=== PATIENT | female | born 1980 | race Caucasian/White ===

== ENCOUNTER 2022-09-17 13:22 | Emergency (ER) | payer OTHER, SELFPAY ==
[2022-09-17 13:36] VITALS: BP 122/81; PULSE 94; RESP 16; TEMP 37.5; O2SAT 99
--- NOTE | 2022-09-17 13:37 | ED.GENADULT ---
HPI - General Adult General Chief complaint: Upper Respiratory Infection Stated complaint: sore throat Source: patient Mode of arrival: ambulatory Limitations: no limitations History of Present Illness HPI narrative: Patient presents for evaluation of sore throat for the last 3 days. Symptoms were initially mild but have progressed in severity. fever, chills, nausea, vomiting. She has some postnasal drainage. She is not taking any medications for her symptoms. She formal diagnosis of COVID in the past. She does not smoke. She states several coworkers have been sick as of late. No additional complaints or concerns. Related Data Home Medications Medication Instructions Recorded Confirmed ergocalciferol (vitamin D2) 1,250 1 unit PO WEEKLY 09/17/22 09/17/22 mcg (50,000 unit) capsule fluoxetine 20 mg capsule 20 mg PO DAILY 09/17/22 09/17/22 Allergies Allergy/AdvReac Type Severity Reaction Status Date / Time acetaminophen [From Percocet] Allergy Nausea and Verified 09/17/22 13:32 Vomiting oxycodone [From Percocet] Allergy Nausea and Verified 09/17/22 13:32 Vomiting Review of Systems Review of Systems: CONSTITUTIONAL: Denies fever, chills, or sweats. EYES: Denies visual changes, redness, or discharge. ENT: Reports postnasal drainage and sore throat. Denies otalgia. CARDIOVASCULAR: Denies chest pain, palpitations, or edema. RESPIRATORY: Denies cough or dyspnea. GASTROINTESTINAL: Denies abdominal pain, nausea, vomiting, or diarrhea. GENITOURINARY: Denies dysuria or hematuria. SKIN: Denies rash or itching. MUSCULOSKELETAL: Denies back pain, joint pain, or myalgia. NEUROLOGIC: Denies headache, numbness, dizziness, or weakness. PSYCHIATRIC: Denies anxiety or depression. [facility] Surgical History Surgical History (Updated 09/17/22 @ 13:58 by ROULA Cruz, CAESAR) No pertinent past surgical history Family History Family History Father Diabetes mellitus Mother Family history of malignant neoplasm of kidney Social History Social History Substance use: never Additional occupation/education comments: RN Gender identity (if verbalized by the patient): Female Sexual Orientation (if Verbalized by the Patient): Straight or Heterosexual Exam Narrative: GENERAL: Well-appearing, well-nourished, and in no acute distress. HEAD: Normocephalic, atraumatic. EYES: PERRLA and EOMI. ENT: Nares clear, no rhinorrhea or epistaxis. Mucous membranes moist. There is posterior pharyngeal erythema and white exudate. Uvula is midline. Bilateral TMs pearly crawford nonbulging NECK: Supple. No adenopathy or masses. No carotid bruits or JVD CHEST: Clear to auscultation. No respiratory distress. No wheezes rales or rhonchi HEART: Regular rate and rhythm. No murmur heard. Normal peripheral pulses. ABDOMEN: Soft, nontender, nondistended, normal active bowel sounds. EXTREMITIES: Normal range of motion. No edema. SKIN: Warm, dry, no rash. NEURO: No focal deficits. Alert and oriented x3. PSYCH: Normal mood and affect. Course Course Emergency Course: This is a 41-year-old female presented for evaluation of sore throat. Rapid strep here positive. Will treat with amoxicillin. Increase hydration. [id number] agents for symptom management. Follow up outpatient. Go to the ER for difficulty breathing or swelling. Patient in agreement with plan of care. Level of Care: Express Care Visit Vital Signs Vital signs: Vital Signs Temperature 37.5 C 09/17/22 13:36 Pulse Rate 94 09/17/22 13:36 Respiratory Rate 09/17/22 13:36 Blood Pressure 122/81 09/17/22 13:36 Pulse Oximetry 99 09/17/22 13:36 Temperature 37.5 C 09/17/22 13:36 Pulse Rate 94 09/17/22 13:36 Respiratory Rate 16 09/17/22 13:36 Blood Pressure 122/81 09/17/22 13:36 Pulse Oximetry 99 09/02
== END 2022-09-17 13:44 | disposition home or self-care (01) ==
PROVIDERS: Emergency Provider Nurse Practitioner; PCP Family Medicine
DX: J02.0 Streptococcal pharyngitis (principal)
CPT/HCPCS: 87880; 99203; G0463

== ENCOUNTER 2023-07-09 12:38 | Outpatient (CLI) | payer OTHER, SELFPAY ==
--- NOTE | ~2023-07-09 | US_ITS ---
EXAMINATION: US thyroid DATE: 07/09/2023 13:10 INDICATION: Abnormal thyroid function tests TECHNIQUE: Multiple ultrasound images of the thyroid were obtained. COMPARISON: None. FINDINGS: The right thyroid lobe measures 4.4 x 1.6 x 1.6 cm. The left thyroid lobe measures 3.5 x 1.3 x 1.7 c m. There is heterogeneous echogenicity throughout the thyroid gland. 7 mm solid, hypoechoic, wider t bowman tall, smoothly marginated nodule in the left lobe, without internal calcification (TR4). Normal v ascular flow is present. IMPRESSION: 7 mm TR 4 lesion in the inferior left thyroid lobe which requires no FNA or follow-up. Heterogeneous thyroid as can be seen with Graves' disease and Kiet's thyroiditis. Reviewed, dictated and finalized at location K. GAME MACHINE INSPECTOR IMPRESSION: 7 mm TR 4 lesion in the inferior left thyroid lobe which requires no FNA or fol low-up. Heterogeneous thyroid as can be seen with Graves' disease and Kiet's thyro iditis.
== END 2023-07-09 12:39 | disposition home or self-care (01) ==
PROVIDERS: PCP Family Medicine
DX: R94.6 Abnormal results of thyroid function studies (principal)
CPT/HCPCS: 76536

== ENCOUNTER 2023-10-15 16:07 | Outpatient (CLI) | payer OTHER, SELFPAY ==
--- NOTE | ~2023-10-15 | XR_ITS ---
XR foot LT min 3V DATE: 10/15/2023 16:34 INDICATION: Recent injury, stepping off of a bale of hay incorrectly. Plantar foot pain at sesamoid a nd first metatarsal area TECHNIQUE: Weightbearing AP, oblique and lateral views. Sesamoid view. COMPARISON: None FINDINGS: No sesamoid fracture or dislocation is noted. No fracture, dislocation, periosteal reaction or bone destruction is detected. IMPRESSION: No significant abnormality Reviewed, dictated and finalized at location L. CTOR OF MARKET INTELLIGENCE IMPRESSION: No significant abnormality
== END 2023-10-15 16:08 | disposition home or self-care (01) ==
LOC: ANHIMG 16:09
PROVIDERS: PCP Family Medicine; Visit Provider Podiatrist Foot & Ankle Surgery
DX: M79.672 Pain in left foot (principal)
CPT/HCPCS: 73630

== ENCOUNTER 2023-12-11 08:34 | Outpatient (CLI) | payer OTHER, SELFPAY ==
[2023-12-16 13:51] VITALS: BMI 25.5
--- NOTE | 2023-12-16 13:51 | WPDHOMESLEEP ---
Sleep Study - Home Unattended Date of Study: 12/11/23 Ordering Provider: BRISA Castro Interpreting Provider: Hannah Maciel, DO Home Sleep Study Type: Watch PAT Height: 1.8 m Weight: 83.007 kg Body Mass Index: 25.5 Neck Circumference (inches): 14.25 [place]: 8 Reason for Sleep Study Unrefreshing sleep. Difficulty staying asleep Sleep History The patient is a 43-year-old female with Kiet's thyroiditis, PMDD, hair loss and history of tobacco use that had a sleep study ordered for evaluation sleep apnea. The patient denies awakening from sleep short of breath. She rarely awakens at night with heartburn, belching or cough. She frequently snores and is frequently loud enough that others complain. She occasionally has trouble sleeping when she has a cold. She denies waking up gasping for air throughout the night. She denies having breathing problems at night observed by herself or others. She rarely sweats excessively at night. She denies having heart palpitations or irregular heartbeats during the night. She rarely falls asleep during the day but never while driving. She denies sleep paralysis and cataplexy. She denies having trouble at school or work due to sleepiness. She occasionally experiences vivid dreamlike scenes upon awakening or falling asleep. She denies feeling afraid of going to sleep. She denies having nightmares. She occasionally remembers her dreams. She occasionally has thoughts racing through her mind. She denies feeling sad or depressed. She occasionally has anxiety. She constantly has muscular tension. She frequently notices parts of her body jerk. She frequently kicks during the night. She constantly has crawling and aching feelings in her legs and constantly has leg pain during the night. He constantly grinds her teeth during sleep and constantly awakens with morning jaw pain. She is constantly bothered by pain during the day and constantly awakened by pain during the night. She constantly wakes up feeling stiff in morning. She constantly wakes up with sore or achy muscles. She constantly wakes up with pain in the neck, spine and other joints. She goes to bed between 9-9:30 p.m. on weekdays and at 10:00 p.m. on the weekends. It takes her less than 30 minutes to fall asleep. She wakes up 3-5 times throughout the night for unknown reasons and it can take her up to an hour to fall back asleep. She wakes up at 5:45 a.m. on weekdays and 7:00 a.m. on the weekends. She typically gets 7-8 hours of sleep per night. She will stay in bed for 15-20 minutes after waking up in the morning. She currently lives with her and 2 children. She denies consuming any caffeinated beverages within 2 hours of bedtime. She denies engaging in physical exercise before bedtime. She will watch television before falling asleep. She denies taking naps in the afternoon or the evening. She consumes 1 cup of coffee per day. She has 1 alcoholic beverage per week. She is a former smoker. She denies recreational drug use. [facility] Past Medical History Medical History Kiet's thyroiditis Snoring Surgical History Surgical History No pertinent past surgical history Family History Family History Father Diabetes mellitus Mother Family history of malignant neoplasm of kidney Grandparent Carcinoma of colon Social History Social History Smoking status: Never smoker Alcohol intake: current Alcohol use details: wine Substance use: never Do You Feel Safe in your Home?: Yes Lack of Transportation: No Lack of Food: Never True Current Housing: I Have Housing Concerned About Future Housing: No Difficulty Paying Gas/Electric Bills: No Difficulty Paying for
== END 2023-12-16 10:00 | disposition home or self-care (01) ==
LOC: ANHCSM 08:35
PROVIDERS: PCP Family Medicine; Visit Provider Physician Assistant
DX: G47.10 Hypersomnia, unspecified (principal); R06.83 Snoring
CPT/HCPCS: 95800

== ENCOUNTER 2023-12-11 15:18 | Outpatient (CLI) | payer OTHER, SELFPAY ==
[2023-12-11 16:34] LABS: Vitamin D 25 Hydroxy 81.8 ng/mL
[2023-12-11 18:10] LABS: Iron 103 ug/dL (37-170)
[2023-12-11 18:20] LABS: Percent Iron Saturation 34 % (20-50)
== END 2023-12-11 15:19 | disposition home or self-care (01) ==
LOC: ANHLAB 15:19
PROVIDERS: PCP Family Medicine; Referring Provider Physician Assistant; Visit Provider Internal Medicine
DX: E06.3 Autoimmune thyroiditis (principal); D64.9 Anemia, unspecified
CPT/HCPCS: 36415; 82306; 82607; 82728; 83540; 83550

== ENCOUNTER 2024-01-11 13:52 | Emergency (ER) | payer OTHER, SELFPAY ==
--- NOTE | 2024-01-11 14:02 | ED.URI ---
HPI - URI/Sore Throat General Chief Complaint: Upper Respiratory Infection Stated Complaint: SORE THROAT/SWOLLEN GLANDS History of Present Illness HPI Narrative: 43-year-old female presented for complaint of sore throat, swollen glands, and green nasal drainage. onset 3 days. States she felt worse yesterday with generalized malaise and saw spots on tonsils. Endorses daughter with similar symptoms. Denies shortness of breath, wheezing, nausea, vomiting, diarrhea, fevers or chills. Related Data Home Medications Medication Instructions Recorded Confirmed ergocalciferol (vitamin D2) 1,250 1 unit PO WEEKLY 09/17/22 01/11/24 mcg (50,000 unit) capsule fluoxetine 20 mg capsule 20 mg PO DAILY 09/17/22 01/11/24 Allergies Allergy/AdvReac Type Severity Reaction Status Date / Time acetaminophen [From Percocet] Allergy Nausea and Verified 01/11/24 14:18 Vomiting oxycodone [From Percocet] Allergy Nausea and Verified 01/11/24 14:18 Vomiting Review of Systems Review of Systems: CONSTITUTIONAL: Denies body aches, fever, chills, or sweats. EYES: Denies visual changes, redness, or discharge. ENT: reports rhinorrhea, sore throat denies otalgia. CARDIOVASCULAR: Denies chest pain, palpitations, or edema. RESPIRATORY: Denies dyspnea. GASTROINTESTINAL: Denies abdominal pain, nausea, vomiting, or diarrhea. SKIN: Denies rash, itching, or wounds. MUSCULOSKELETAL: Denies back pain, joint pain, or myalgia. NEUROLOGIC: Denies headache PMFSH Past Medical History Medical History Kiet's thyroiditis Snoring Surgical History Surgical History No pertinent past surgical history Family History Family History Father Diabetes mellitus Mother Family history of malignant neoplasm of kidney Grandparent Carcinoma of colon Social History Social History Smoking status: Never smoker Alcohol intake: current Alcohol use details: wine Substance use: never Do You Feel Safe in your Home?: Yes Lack of Transportation: No Lack of Food: Never True Current Housing: I Have Housing Concerned About Future Housing: No Difficulty Paying Gas/Electric Bills: No Difficulty Paying for Meds: No Currently Unemployed: No Education: Associate Degree Difficulty w/ Childcare or Family Care: No Living arrangements: with family Additional occupation/education comments: RN Gender identity (if verbalized by the patient): Female Sexual Orientation (if Verbalized by the Patient): Straight or Heterosexual Exam Narrative: GENERAL: well-appearing, no acute distress. EYES: conjunctivae clear ENT: Mucous membranes moist. TMs pearly crawford with normal light reflex bilaterally; no tragal tenderness. Oropharynx erythematous without lesions. Tonsils enlarged 1+ and without exudate. No drooling, no hoarseness, no trismus, uvula midline. No tripod positioning, hot potato voice, or soft palate swelling. NECK: Supple. No lymphadenopathy CHEST: Clear to auscultation, breath sounds equal. No respiratory distress, speaks in full sentences. HEART: Regular rate and rhythm. No murmur heard. SKIN: Warm, dry, no rash. NEURO: Alert and oriented x3. Course Course Emergency Course: Patient is aware of diagnosis, understands and agrees to treatment plan. Anticipatory guidance given. Patient agrees to follow-up as directed and is aware of reasons to seek care at the emergency department. Portions of this record may have been created with voice recognition software Level of Care: Express Care Visit Vital Signs Vital signs: Vital Signs Temperature 97.7 F 01/11/24 14:03 Pulse Rate 81 01/11/24 14:03 Respiratory Rate 18 01/11/24 14:03 Blood Pressure 109/79 01/11/24 14:03 Pulse Oximet
[2024-01-11 14:03] VITALS: BP 109/79; PULSE 81; RESP 18; TEMP 36.5; O2SAT 100
== END 2024-01-11 14:27 | disposition home or self-care (01) ==
PROVIDERS: Emergency Provider Nurse Practitioner Family
DX: J02.0 Streptococcal pharyngitis (principal); E06.3 Autoimmune thyroiditis
CPT/HCPCS: 99213; G0463

== ENCOUNTER 2024-03-20 18:17 | Emergency (ER) | payer OTHER, SELFPAY ==
[2024-03-20 18:26] VITALS: BP 115/84; PULSE 77; RESP 16; TEMP 36.7; O2SAT 98
--- NOTE | 2024-03-20 18:44 | ED.NAVMDI ---
HPI - Nausea/Vomiting/Diarrhea General Chief complaint: Nausea/Vomiting/Diarrhea Stated complaint: NAUSEA/VOMITING/TIRED/CHILLS/HOT/FAN/BACK PAIN Time Seen by Provider: 03/20/24 18:34 Source: patient and RN notes reviewed Mode of arrival: ambulatory Limitations: no limitations History of Present Illness HPI Narrative: Patient presents today complaining of 3 day history of headache, back pain and sensitivity, fatigue, nausea, vomiting, decreased appetite. She has been trying Tylenol and Sudafed without much relief and currently rates her pain 4/10. Related Data Home Medications Medication Instructions Recorded Confirmed ergocalciferol (vitamin D2) 1,250 1 unit PO WEEKLY 09/17/22 03/20/24 mcg (50,000 unit) capsule fluoxetine 20 mg capsule 20 mg PO DAILY 09/17/22 03/20/24 Ozempic 03/20/24 Allergies Allergy/AdvReac Type Severity Reaction Status Date / Time acetaminophen [From Percocet] Allergy Nausea and Verified 03/20/24 18:37 Vomiting oxycodone [From Percocet] Allergy Nausea and Verified 03/20/24 18:37 Vomiting Review of Systems Review of Systems: CONSTITUTIONAL: Denies fever, chills, or sweats.+ body aches, fatigue, weakness EYES: Denies visual changes, redness, or discharge. ENT: Denies rhinorrhea, congestion, sore throat, or otalgia. CARDIOVASCULAR: Denies chest pain, palpitations, or edema. RESPIRATORY: Denies cough or dyspnea. GASTROINTESTINAL: Denies abdominal pain.+ nausea, vomiting, decreased appetite GENITOURINARY: Denies dysuria or hematuria. SKIN: Denies rash, itching, or wounds. MUSCULOSKELETAL: Denies back pain, joint pain, or myalgia. NEUROLOGIC: Denies numbness, tingling, or weakness.+ headache PSYCH: Denies depression or anxiety. [facility] Past Medical History Medical History Kiet's thyroiditis Snoring Surgical History Surgical History No pertinent past surgical history Family History Family History Father Diabetes mellitus Mother Family history of malignant neoplasm of kidney Grandparent Carcinoma of colon Social History Social History Smoking status: Never smoker Alcohol intake: current Alcohol use details: wine Substance use: never Do You Feel Safe in your Home?: Yes Lack of Transportation: No Lack of Food: Never True Current Housing: I Have Housing Concerned About Future Housing: No Difficulty Paying Gas/Electric Bills: No Difficulty Paying for Meds: No Currently Unemployed: No Education: Associate Degree Difficulty w/ Childcare or Family Care: No Living arrangements: with family Additional occupation/education comments: RN Gender identity (if verbalized by the patient): Female Sexual Orientation (if Verbalized by the Patient): Straight or Heterosexual Comments At time of signature, I have reviewed and agree with nursing past medical, surgical, social and family history unless otherwise noted. Please see nursing chart for further information. There is no relevant family history pertinent to the presenting complaint Exam Narrative: GENERAL: Mildly ill-appearing, well-nourished, and in no acute distress. HEAD: Normocephalic, atraumatic. EYES: EOMI. No redness or drainage. Conjunctivae normal. ENT: Mucous membranes pink and moist. Nares clear. No rhinorrhea. TMs normal bilaterally. Throat normal. Uvula midline. NECK: Normal AROM. Supple. No lymphadenopathy. CHEST: No respiratory distress. Clear to auscultation. HEART: Regular rate and rhythm. No murmur appreciated. EXTREMITIES: Normal range of motion. No edema. SKIN: Warm, dry, no rash. Capillary refill normal. Normal skin turgor. NEURO: No focal deficits. Alert and oriented x3. Gait steady. PSYCH: Normal affect. No s
[2024-03-20 18:47] LABS: EDINFLUASCREEN Negative; EDINFLUBSCREEN Negative
== END 2024-03-20 18:50 | disposition home or self-care (01) ==
PROVIDERS: Emergency Provider Nurse Practitioner; PCP Family Medicine
DX: U07.1 COVID-19 (principal); E06.3 Autoimmune thyroiditis
CPT/HCPCS: 87426; 87804; 99213; G0463

== ENCOUNTER 2024-07-15 15:01 | Outpatient (CLI) | payer OTHER, SELFPAY ==
--- NOTE | ~2024-07-15 | MM_ITS ---
EXAMINATION: MM screening nitin BI w [place] HISTORY: Screening mammogram TECHNIQUE: Craniocaudal and mediolateral oblique 3-D tomosynthesis images were obtained and synthetic 2-D images were generated. CAD analysis was submitted and interpreted. COMPARISON: 01/18/2017 BREAST PARENCHYMAL COMPOSITION:Dense: The breasts are extremely dense, which lowers the sensitivity o f mammography. FINDINGS: No suspicious mass, calcification, or architectural distortion are identified in either thomas ast to suggest malignancy. There has been no suspicious interval change. IMPRESSION: No mammographic evidence of malignancy. Recommend routine screening mammography in one year. BI-RADS Category 1: Negative Reviewed, dictated and finalized at location M. O NEWS ANCHOR
== END 2024-07-15 15:02 | disposition home or self-care (01) ==
PROVIDERS: PCP Family Medicine; Visit Provider Obstetrics & Gynecology
DX: Z12.31 Encounter for screening mammogram for malignant neoplasm of breast (principal)
CPT/HCPCS: 77063; 77067

== ENCOUNTER 2024-10-29 13:59 | Outpatient (CLI) | payer OTHER, SELFPAY | END 2024-10-29 14:00 | disposition home or self-care (01) | LOC: ANHLAB 14:00 | PROVIDERS: PCP Family Medicine; Visit Provider Internal Medicine | DX: E06.3 Autoimmune thyroiditis (principal) | CPT/HCPCS: 36415; 84439; 84443 ==

== ENCOUNTER 2024-11-24 15:36 | Outpatient (CLI) | payer OTHER, SELFPAY ==
--- NOTE | ~2024-11-24 | US_ITS ---
EXAMINATION: US thyroid DATE: 11/24/2024 16:05 INDICATION: Autoimmune thyroiditis. TECHNIQUE: Multiple ultrasound images of the thyroid were obtained. COMPARISON: Ultrasound 07/09/2023 FINDINGS: The right thyroid lobe measures 5.3 x 1.4 x 1.8 cm. The left thyroid lobe measures 4.6 x 1.2 x 1.8 c m. The thyroid demonstrates diffusely heterogeneous echogenicity and increased vascularity. No discr ete nodule. IMPRESSION: 1. Heterogeneous and hypervascular thyroid, consistent with chronic lymphocytic (Kiet) thyroidit is. Reviewed, dictated and finalized at location A. IMPRESSION: 1. Heterogeneous and hypervascular thyroid, consistent with chronic lymphocytic (Kiet) thyroiditis.
--- OUTSIDE RECORDS SUMMARY | 2024-11-24 18:10 | XMS_ITS | Clinical Summary ---
Author Organization [facility] Address [address] [place] [address] Care Team Providers Care Ship Fitter Name Role Phone Unavailable Primary Care Provider Unavailabl e Source Comments [facility],non-owned Affiliates and Associated Physician Practices is amultiple site organization consisting of ambulatory clinics and hospital sitesin [place], [place], [place] and [place]. This disclosure is being madepursuant to the Care Everywhere program and may not contain all information available regarding this patient. Last updated 18.[facility] [place] Allergies Active Allergy Reactions Criticality Noted Date Comments Miconazole Nitrate 09/20/2011 REDNESS SWELLING Oxycodone-Acetaminophe n Nausea and/or Vomiting 09/20/2011 Medications * Be aware that medications may not be up to date on this document. Alwaysverify current medications with the patient. Medication Sig Dispensed Refills Start Date End Date Status FLUoxetine (PROZAC) 20 MG capsule Take 20 mg by mouth once daily. Active multivitamin daily (THERAGRAN) tablet Take 1 Tab by mouth daily with food. Active ibuprofen (MOTRIN) 600 MG tablet Take 1 Tab by mouth every 6 hours as needed for Pain. 40 Tab 0 09/28/2011 Active Family History Medical History Relation Name Comments Cancer - Colon Maternal Grandfather Other Other Goodpastures Relation Name Status Comments Maternal Grandfather Other Social History Tobacco Use Types Packs/Day Years Used Date Smoking Tobacco: Every Day Comments:3 CIGARETTES DAILY Alcohol Use Standard Drinks/Week Comments Yes 0 (1 standard drink = 0.6 oz pur e alcohol) OCCASIONAL Sex and Gender Information Value Date Recorded Sex Assigned at Not on file Gender Identity Not on file Sexual Orientation Not on file Last Filed Vital Signs Vital Sign Reading Time Taken Comments Blood Pressure 111/77 09/28/2011 3:24 PM GIFTED PROGRAM TEACHER Pulse 76 09/28/2011 2:52 PM GIFTED PROGRAM TEACHER Temperature 36.3 C (97.4 F) 09/28/2011 2:52 PM GIFTED PROGRAM TEACHER Respiratory Rate 26 09/28/2011 2:52 PM GIFTED PROGRAM TEACHER Oxygen Saturation 95% 09/28/2011 2:52 PM GIFTED PROGRAM TEACHER Inhaled Oxygen Concentration - - Weight - - Height 170.2 cm (5' 7 ) 09/28/2011 11:13 AM GIFTED PROGRAM TEACHER Body Mass Index - - Plan of Treatment Health Maintenance Due Date Last Done Comments LIPID TESTING 1982 MAMMOGRAM 1982 PAP SMEAR 1982 HIV SCREENING 1997 HEPATITIS C SCREENING 12/09/2000 DTAP/TDAP/TD VACCINES (1 - Tdap) 2001 HEPATITIS B VACCINE (1 of 3 - 19+ 3-dose series) 2001 PNEUMOCOCCAL VACCINE (1 of 2 - PCV) 2001 COVID-19 VACCINE (1 - 2023-2 5 season) 2024 INFLUENZA VACCINE (#1) 2024 DEPRESSION SCREENING 09/02/2024 ZOSTER VACCINE (1 of 2) 2032 HIB VACCINE Aged Out No longer eligi ble based on patient's age to complete this topic HPV VACCINE Aged Out No longer eligi ble based on patient's age to complete this topic MENINGOCOCCAL (Group B) VACC INE SHARED DECISION-MAKING Aged Out No longer eligibl e based on patient's age to complete this topic MENINGOCOCCAL GROUPS A/C/Y/W VACCINE Aged Out No longer eligible b ased on patient's age to complete this topic
--- OUTSIDE RECORDS SUMMARY | 2024-11-24 18:10 | XMS_ITS | Clinical Summary ---
Author Organization [facility] Address [address] [place] [address] Care Team Providers Care Cardiac Nurse Name Role Phone Jadon Triplett MD Primary Care Provider [phone] Allergies Active Allergy Reactions Criticality Noted Date Comments Miconazole Rash,Swelling Low 09/20/2011 REDNESS SWELLING Oxycodone-Acetaminophe n Vomiting,Nausea and Vomiting 09/20/2011 Medications FLUoxetine 20 MG capsule Take 20 mg by mouth daily. 07/11/2021 Active omeprazole 40 MG capsule Take 40 mg by mouth 2 (two) times a day. 10/20/2021 Active vitamin D2, ergocalciferol, 71812 UNITS capsule TAKE 1 CAPSULE BY MOUTH 1 TIME WEEKLY 10/20/2021 Active Social History Tobacco Use Types Packs/Day Years Used Date Smoking Tobacco: Never Smokeless Tobacco: Never Alcohol Use Standard Drinks/Week Comments Yes 0 (1 standard drink = 0.6 oz pur e alcohol) socially Comments No Sex and Gender Information Value Date Recorded Sex Assigned at Not on file Legal Sex Female 8:05 PM CDT Gender Identity Not on file Sexual Orientation Not on file Last Filed Vital Signs Vital Sign Reading Time Taken Comments Blood Pressure 123/75 12/08/2021 9:50 AM CDT Pulse 83 12/08/2021 9:50 AM CDT Temperature 36.1 C (97 F) 12/08/2021 9:50 AM CDT Respiratory Rate 16 12/08/2021 9:50 AM CDT Oxygen Saturation 100% 12/08/2021 9:50 AM CDT Inhaled Oxygen Concentration - - Weight 95.7 kg (211 lb) 11/30/2021 1:16 PM CDT Height 180.3 cm (5' 11 ) 11/30/2021 1:16 PM CDT Body Mass Index 29.43 11/30/2021 1:16 PM CDT Plan of Treatment Health Maintenance Due Date Last Done Comments Cervical Cancer Screening Pa p Smear (Age 30 to 64) Every 3 Years 1982 Annual Physical 1985 Hepatitis C 2000 Hepatitis B Vaccines (1 of 3 - 19+ 3-dose series) 2001 Cervical Cancer Screening Pa p with HPV Testing (Age 30 to 64) Every 5 Years 2012 Cervical Cancer Screening wi th HPV 2012 Mammogram Screening 2022 COVID-19 Vaccine (2023-2 5 season) 2024 06/16/2021, 09/13/2020, 08/23/2020 Influenza Adult (#1) 2024 DTaP, Tdap and Td Vaccines ( 2 - Td or Tdap) 12/22/2028 12/22/2018 HPV Vaccines Aged Out No longer eligi ble based on patient's age to complete this topic Meningococcal B Vaccine Aged Out No l onger eligible based on patient's age to complete this topic Meningococcal Vaccine Aged Out No alejandro david eligible based on patient's age to complete this topic Pneumococcal Vaccine: Pediatrics (0 to 5 Years) and At-Risk Patients (6 to 64 Years) Aged Out No longer eligible b ased on patient's age to complete this topic RSV Immunizations Under 20 Months Aged Out No longer eligible b ased on patient's age to complete this topic Insurance [facility] Care Teams Cardiac Nurse Relationship Specialty Start Date End Date Jadon Triplett MD [address] [phone] PCP - General FAMILY PRACTICE 07/18/21
--- OUTSIDE RECORDS SUMMARY | 2024-11-24 18:10 | XMS_ITS | Clinical Summary ---
Author Organization [facility] Address [address] [place] [address] Phone Care Team Providers Care General Handling Supervisor Name Role Phone Provider, None Primary Care Provider Unavailabl e Social History Tobacco Use Types Packs/Day Years Used Date Smoking Tobacco: Never Assessed Comments No Sex and Gender Information Value Date Recorded Sex Assigned at Not on file Legal Sex Female 11:52 PM CDT Gender Identity Not on file Sexual Orientation Not on file Plan of Treatment Health Maintenance Due Date Last Done Comments Hepatitis C Virus (HCV) Screening 1982 TdaP Immunization 1982 Hepatitis B Immunization (1 of 3 - 19+ 3-dose series) 2001 Influenza Immunization (#1) 2024 SARS-COV-2 Immunization ( season) 2024 Respiratory Syncytial Virus (RSV) Immunization (Adult) (1 - 1-dose 75+ series) 2057 Discussion re Starting/Frequ ency of Mammograms Discontinued 01/18/2017 Meningococcal Immunization (ACWY) Aged Out No longer eligible based on patient's age to complete this topic Pneumococcal Immunization Combined Aged Out No longer eligible b ased on patient's age to complete this topic Rotavirus Immunization Aged Out No lo nger eligible based on patient's age to complete this topic Procedures Procedure Name Priority Date/Time Associated Diagnosis Comments CYN DIAG BILATERAL DIGITAL W CAD Routine 01/18/2017 10:58 AM CDT Visit for screening mammogram from Last 3 Months or Most Recently Relevant to Health Maintenance Results * CYN DIAG BILATERAL DIGITAL W CAD (01/18/2017 10:58 AM CDT) Anatomical Region Laterality Modality breast Bilateral Mammography 01/18/2017 10:0 4 AM CDT Narrative 01/18/2017 1:45 PM CDT - CYN DIAG BILATERAL DIGITAL W CAD BILATERAL DIGITAL DIAGNOSTIC MAMMOGRAM WITH CAD WITH MEDIOLATERAL OBLIQUE CRANIOCAUDAL: 01/18/2017 The study was acquired using digital technology and interpreted from soft copy. Current study was also evaluated with ICAD version 7.2. CLINICAL: Diagnostic study. Baseline. No personal history of cancer. No family history of breast cancer. Palpable lump right breast. COMPARISONS: No prior exams were available for comparison. BREAST TISSUE:The tissue of both breasts is extremely dense, which lowers the sensitivity of mammography. FINDINGS: There is a round mass with a circumscribed margin in the right breast upper outer aspect posterior depth. No other significant masses, calcifications, or other findings are seen in either breast. IMPRESSION: BI-RAD 0 ADDITIONAL IMAGING EVALUATION NEEDED The round mass in the right breast is indeterminate. An ultrasound is recommended. Please see separate report. The patient has been or will be contacted. Marvin Edward M.D. bs/:01/18/2017 10:54:34 Calendering Supervisor: Francie Fish(Nabil), [facility] letter sent: Additional Imaging Reading location: [facility] BI-RADS: 0 Additional Imaging Evaluation Needed Procedure Note Marvin Edward MD - 01/18/2017 - [facility] DIAG BILATERAL DIGITAL W CAD BILATERAL DIGITAL DIAGNOSTIC MAMMOGRAM WITH CAD WITH MEDIOLATERAL OBLIQUE CRANIOCAUDAL: 01/18/2017 The study was acquired using digital technology and interpreted from soft copy. Current study was also evaluated with ICAD version 7.2. CLINICAL: Diagnostic study. Baseline. No personal history of cancer. No family history of breast cancer. Palpable lump right breast. COMPARISONS: No prior exams were available for comparison. BREAST TISSUE:The tissue of both breasts is extremely dense, which lowers the sensitivity of mammography. FINDINGS: There is a round mass with a circumscribed margin in the right breast upper outer aspect posterior depth. No other significant masses, calcifications, or other findings are seen in either breast. IMPRESSION: BI-RAD 0 ADDITIONAL IMAGING EVALUATION NEEDED The round mass in the right breast is indeterminate. An ultrasound is recommended. Please see separate report. The patient has been or will be contacted. Marvin Edward M.D. bs/:01/18/2017 10:54:34 Calendering Supervisor: Francie Fish(R), [facility] letter sent: Additional Imaging Reading location: [facility] BI-RADS: 0 Additional Imaging Evaluation Needed us Dalia Bentley MD IMG MAMMO ORDERABLES F inal Result from Last 3 Months or Most Recently Relevant to Health Maintenance Care Teams General Handling Supervisor Relationship Specialty Start Date End Date Provider, None [place] PCP - General 10/06/15
--- OUTSIDE RECORDS SUMMARY | 2024-11-24 18:10 | XMS_ITS | Clinical Summary ---
Author Organization [facility] Address [address] [place] [phone] Phone Care Team Providers Care Forge Utility Worker Name Role Phone Unavailable Primary Care Provider Unavailabl e Allergies No known active allergies Medications multivitamins with minerals (HAIR,SKIN AND NAILS) Tablet Take 1 Tablet by mouth daily. Active FLUoxetine (PROzac) 20 mg capsule Take 20 mg by mouth daily. Active HYDROcodone-acet aminophen (NORCO) 5-325 mg tablet Take 2 Tablet by mouth every 4 hours as needed for Other (See Comment) (FIRST LINE MEDICATION, See Admin. Instruction s). Max Daily Amount: 12 Tablet 40 Tablet 0 07/03/2016 Active Active Problems Problem Noted Date Diagnosed Date Post-traumatic osteoarthritis of right wrist 09/2015 Social History Tobacco Use Types Packs/Day Years Used Date Smoking Tobacco: Former Cigarettes Q uit: 04/27/2016 Smokeless Tobacco: Never Alcohol Use Standard Drinks/Week Comments Yes 0 (1 standard drink = 0.6 oz pur e alcohol) SOCIALLY Comments Unknown Sex and Gender Information Value Date Recorded Sex Assigned at Not on file Legal Sex Female 4:25 PM CDT Gender Identity Not on file Sexual Orientation Not on file Last Filed Vital Signs Vital Sign Reading Time Taken Comments Blood Pressure 118/60 07/03/2016 12:23 PM CDT Pulse 70 07/03/2016 12:23 PM CDT Temperature 36.7 C (98 F) 07/03/2016 12:23 PM CDT Respiratory Rate 18 07/03/2016 12:23 PM CDT Oxygen Saturation 98% 07/03/2016 12:23 PM CDT Inhaled Oxygen Concentration - - Weight 84.5 kg (186 lb 3.2 oz) 07/03/2016 6:35 A M CDT Height 180.3 cm (5' 11 ) 06/27/2016 1:53 PM CDT Body Mass Index 25.97 06/27/2016 1:53 PM CDT Plan of Treatment Health Maintenance Due Date Last Done Comments DTAP/TDAP/TD VACCINES (1 - Tdap) 2001 HEPATITIS B VACCINES (1 of 3 - 19+ 3-dose series) 2001 PAP SMEAR 12/15/2003 CERVICAL CANCER SCREENING 2012 HPV/Cotest 2012 PAP SMEAR 2012 BREAST CANCER SCREENING 2022 INFLUENZA VACCINE (#1) 2024 HPV VACCINES Aged Out No longer eligi ble based on patient's age to complete this topic PNEUMOCOCCAL VACCINE 0-49 YEARS Aged Out No longer eligible based on patient's age to complete this topic Medical Devices Implanted Type Area Ballet Company Artistic Director Device Identifier Shelf Expiration Date Model / Serial / Lot Accell Evo3 Dbm Putty 2.5ml - - [id number] Implanted:Qty : 1 on 07/03/2016 by Marquise Lorenzana MD at [facility] Putty Right: Hand [employer] 03/29/2017-0 / [id number] / [id number] Description:po#[id number] Screw Mini Acutrak 26mm At2-M26-S - [id number] Implanted:Qty : 1 on 07/03/2016 by Marquise Lorenzana MD at [facility] Screw Right: Hand [employer] 04/01/2020 AT2-M26-S / / [id number] Screw Mini Acutrak 24mm At2-M24-S - [id number] Implanted:Qty : 1 on 07/03/2016 by Marquise Lorenzana MD at [facility] Screw Right: Hand [employer] [id number] 04/28/2022 AT2-M24-S / / [id number] Explanted Type Area Ballet Company Artistic Director Device Identifier Shelf Expiration Date Model / Serial / Lot Wire K Trocar Dbl .[id number] - [id number] Implanted:Marquise Soares MD (Quantity not on file) Explanted:Qty: 1 on 07/03/2016 by Marquise Lorenzana MD at [facility] Wire Right: Hand [employer] [id number] / / [id number] STERILIZED 06-30-2016 Screw Explanted:Qty: 1 on 07/03/2016 by Marquise Lorenzana MD at [facility] Right: Hand NA / / NA Insurance [facility] Advance Directives For more information, please contact: [phone] * Full Code (Latest Code Status on File) Date Activated Date Inactivated Comments 07/03/2016 7:54 AM 07/03/2016 2:43 PM * Full Code Date Activated Date Inactivated Comments 07/03/2016 6:49 AM 07/03/2016 7:54 AM
== END 2024-11-24 15:37 | disposition home or self-care (01) ==
PROVIDERS: PCP Family Medicine; Visit Provider Internal Medicine
DX: E06.3 Autoimmune thyroiditis (principal); E04.1 Nontoxic single thyroid nodule
CPT/HCPCS: 76536

== ENCOUNTER 2024-12-24 16:38 | Emergency (ER) | payer OTHER, SELFPAY ==
--- NOTE | 2024-12-24 16:50 | ED_ITS ---
HPI - URI/Sore Throat General Chief Complaint: Upper Respiratory Infection Stated Complaint: SORE THROAT Time Seen by Provider: 12/24/24 16:50 History of Present Illness HPI Narrative: 44-year-old female presented for complaint of sore throat. Onset 2 days. Symptoms worsened last night. Children sick with strep throat. Denies shortness of breath, wheezing nausea vomiting, fevers or chills. Not taking anything for symptoms. Related Data Home Medications ?Medication ?Instructions ?Recorded ?Confirmed ?Last Taken ?Type ergocalciferol (vitamin D2) 1,250 1 unit PO WEEKLY 09/17/22 03/20/24 Unknown History mcg (50,000 unit) capsule fluoxetine 20 mg capsule 20 mg PO DAILY 09/17/22 03/20/24 Unknown History Ozempic 03/20/24 Unknown History Allergies Allergy/AdvReac Type Severity Reaction Status Date / Time acetaminophen (From Percocet) Allergy Nausea and Verified 11/11/24 11:30 Vomiting oxycodone (From Percocet) Allergy Nausea and Verified 11/11/24 11:30 Vomiting Review of Systems Review of Systems: CONSTITUTIONAL: Denies body aches, fever, chills, or sweats. EYES: Denies visual changes, redness, or discharge. ENT: reports sore throat Denies rhinorrhea, congestion, or otalgia. CARDIOVASCULAR: Denies chest pain, palpitations, or edema. RESPIRATORY: Denies dyspnea. GASTROINTESTINAL: Denies abdominal pain, nausea, vomiting, or diarrhea. SKIN: Denies rash NEUROLOGIC: Denies headache PMFSH Past Medical History Medical History Snoring Kiet's thyroiditis Surgical History Surgical History No pertinent past surgical history Family History Family History Father Diabetes mellitus Mother Family history of malignant neoplasm of kidney Grandparent Carcinoma of colon Social History Social History Smoking status: Never smoker Alcohol intake: current Alcohol use details: wine Substance use: never Do You Feel Safe in your Home?: Yes Lack of Transportation: No Lack of Food: Never True Current Housing: I Have Housing Concerned About Future Housing: No Difficulty Paying Gas/Electric Bills: No Difficulty Paying for Meds: No Currently Unemployed: No Education: Associate Degree Difficulty w/ Childcare or Family Care: No Living arrangements: with family Additional occupation/education comments: RN Gender identity (if verbalized by the patient): Female Sexual Orientation (if Verbalized by the Patient): Straight or Heterosexual Exam Narrative: GENERAL: mildly Ill-appearing, no acute distress. EYES: conjunctivae clear ENT: Mucous membranes moist. TM pearly crawford with normal light reflex bilaterally; no tragal tenderness. Oropharynx erythematous without lesions. Tonsils not enlarged and without exudate. No drooling, no hoarseness, no trismus, uvula midline. No tripod positioning, hot potato voice, or soft palate swelling. NECK: Supple. No lymphadenopathy CHEST: Clear to auscultation, breath sounds equal. No respiratory distress, speaks in full sentences. HEART: Regular rate and rhythm. No murmur heard. SKIN: Warm, dry, no rash. NEURO: Alert and oriented x3. Course Course Emergency Course: Patient is aware of diagnosis, understands and agrees to treatment plan. Anticipatory guidance given. Patient agrees to follow-up as directed and is aware of reasons to seek care at the emergency department. Portions of this record may have been created with voice recognition software Level of Care: Express Care Visit Vital Signs Vital signs: Vital Signs Temperature 98.2 F 12/24/24 16:56 Pulse Rate 80 12/24/24 16:56 Respiratory Rate 16 12/24/24 16:56 Blood Pressure 113/82 12/24/24 16:56 Pulse Oximetry 100 12/24/24 16:56 Temperature 98.2 F 12/24/24 16:56 Pulse Rate 80 12/24/24 16:56 Respiratory Rate 16 12/24/24 16:56 Blood Pressure 113/82 12/24/24 16:56 Pulse Oximetry 100 12/24/24 16:56 MDM - URI/Sore Throat MDM Narrative Medical decision making narrative: POS strep result reviewed with pt. Advise supportive treatments. Patient is appropriate for outpatient treatment and follow-up. Differential Diagnosis Differential diagnosis: Likely upper respiratory infection, viral infection and pharyngitis Lab Data Labs: Lab Results 12/24/24 Range/Units 16:59 POC Grp A Strep Screen Positive (Negative) Discharge Plan Discharge Clinical Impression: Strep pharyngitis Patient Disposition: Home Condition: Stable Instructions: Antibiotic Form, Strep Throat (ED) Additional Instructions: - Take the antibiotic as directed. Fever and sore throat typically resolve within one to three days. Most patients can return to work, after 12 to 24 hours of antibiotic therapy, provided you are fever free and otherwise well. -Eat and drink things that are easy to swallow, like soft foods, cool liquids, tea with honey, or popsicles . -Salt water gargles and/or may use topical anesthetic ( Chloraseptic spray) or lozenges to relieve dryness or throat pain -Alternate Tylenol and ibuprofen as needed for pain and fever as directed. -Frequent hand washing or hand bereavement counselor is one of the best ways to prevent spread of infection. Throw away the toothbrush after 24hours of antibiotic. -Follow up with primary care provider in 3 days if condition is not improving -Go to the ER if you have trouble breathing, cannot drink enough fluids, have muffled voice or drooling, difficulty opening your mouth, or severe swelling. Patient Language: Vietnamese Prescriptions: New amoxicillin 500 mg tablet 1,000 mg PO DAILY 10 Days Qty: 20 0RF No Action ergocalciferol (vitamin D2) 1,250 mcg (50,000 unit) capsule 1 unit PO WEEKLY fluoxetine 20 mg capsule 20 mg PO DAILY Ozempic Follow-up/Referrals: Jadon Triplett M.D. [Primary Care Provider] -
[2024-12-24 16:56] VITALS: BP 113/82; PULSE 80; RESP 16; TEMP 36.8; O2SAT 100
[2024-12-24 17:01] LABS: EDSTREPNEGPOS1 Positive (Negative)
== END 2024-12-24 17:13 | disposition home or self-care (01) ==
PROVIDERS: Emergency Provider Nurse Practitioner Family; PCP Family Medicine
DX: J02.0 Streptococcal pharyngitis (principal)
CPT/HCPCS: 87880; 99213; G0463

== ENCOUNTER 2025-04-23 13:23 | Outpatient (CLI) | payer OTHER, SELFPAY ==
--- OUTSIDE RECORDS SUMMARY | 2025-04-23 13:27 | XMS_ITS | Clinical Summary ---
Author Organization [facility] Address [address] [place] [phone] Phone Care Team Providers Care Hosted Services Analyst Name Role Phone Unavailable Primary Care Provider [...] A M CDT Height 180.3 cm (5' 11) 06/27/2016 1:53 PM CDT Body Mass Index 25.97 06/27/2016 1:53 PM CDT Plan of Treatment Health Maintenance Due Date Last Done Comments HPV VACCINES (1 - 3-dose series) 1997 DTAP/TDAP/TD VACCINES (1 - Tdap) 2001 HEPATITIS B VACCINES (1 of 3 - 19+ 3-dose series) 12/01 HPV/Cotest (21-29) 12/15/2003 CERVICAL CANCER SCREENING 2012 HPV/Cotest (30-65) 2012 PAP SMEAR 2012 BREAST CANCER SCREENING 2022 INFLUENZA VACCINE (#1) 2025 Medical Devices Implanted Type Area Museum Curator Device Identifier Shelf Expiration Date Model / Serial / Lot Accell Evo3 Dbm Putty 2.5ml -025 - [id number] Implanted:Qty : 1 on 07/03/2016 by Marquise Lorenzana MD at [facility] Putty Right: Hand [employer] 03/29/2017-0 25 / [id number] / [id number] Description:po#[id number] Screw Mini Acutrak 26mm At2-M26-S - [id number] Implanted:Qty : 1 on 07/03/2016 by Marquise Lorenzana MD at [facility] Screw Right: Hand [employer] 04/01/2020 AT2-M26-S / / [id number] Screw Mini Acutrak 24mm At2-M24-S - [id number] Implanted:Qty : 1 on 07/03/2016 by Marquise Lorenzana MD at [facility] Screw Right: Hand [employer] [id number] 04/28/2022 AT2-M24-S / / [id number] Explanted Type Area Museum Curator Device Identifier Shelf Expiration Date Model / Serial / Lot Wire K Trocar Dbl .[id number] - [id number] Implanted:Marquise Soares MD (Quantity not on file) Explanted:Qty: 1 on 07/03/2016 by Marquise Lorenzana MD at [facility] Wire Right: Hand [employer] [id number] / / [id number] STERILIZED 06-30-2016 Screw Explanted:Qty: 1 on 07/03/2016 by Marquise Lorenzana MD at [facility] Right: Hand NA / / NA Advance Directives For more information, please contact: [phone] * Full Code (Latest Code Status on File) Date Activated Date Inactivated Comments 07/03/2016 7:54 AM 07/03/2016 2:43 PM * Full Code Date Activated Date Inactivated Comments 07/03/2016 6:49 AM 07/03/2016 7:54 AM
--- OUTSIDE RECORDS SUMMARY | 2025-04-23 13:27 | XMS_ITS | Clinical Summary ---
Author Organization [facility] Address [address] [address] Care Team Providers Care Neurologist Name Role Phone Unavailable Primary Care Provider Unavailabl e Source Comments [facility],non-owned Affiliates and Associated Physician Practices is amultiple site organization consisting of ambulatory clinics and hospital sitesin [place], [place], [place] and [place]. This disclosure is being madepursuant to the Care Everywhere program and may not contain all information available regarding this patient. Last updated 18.[facility] [employer] Allergies Active Allergy Reactions Criticality Noted Date Comments Miconazole Nitrate 09/20/2011 REDNESS SWELLING Oxycodone-Acetaminophe n Nausea and/or Vomiting 09/20/2011 Medications * Be aware that medications may not be up to date on this document. Alwaysverify current medications with the patient. 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 Not on file Not on file Last Filed Vital Signs Vital Sign Reading Time Taken Comments Blood Pressure 111/77 09/28/2011 3:24 PM SPECTRAL SCIENTIST Pulse 76 09/28/2011 2:52 PM SPECTRAL SCIENTIST Temperature 36.3 C (97.4 F) 09/28/2011 2:52 PM SPECTRAL SCIENTIST Respiratory Rate 26 09/28/2011 2:52 PM SPECTRAL SCIENTIST Oxygen Saturation 95% 09/28/2011 2:52 PM SPECTRAL SCIENTIST Inhaled Oxygen Concentration - - Weight - - Height 170.2 cm (5' 7) 09/28/2011 11:13 AM SPECTRAL SCIENTIST Body Mass Index - - Plan of Treatment Health Maintenance Due Date Last Done Comments LIPID TESTING 1982 MAMMOGRAM 1982 HIV SCREENING 1997 HEPATITIS C SCREENING 12/09/2000 DTAP/TDAP/TD VACCINES (1 - Tdap) 2001 HEPATITIS B VACCINE (1 of 3 - 19+ 3-dose series) 2001 PNEUMOCOCCAL VACCINE (1 of 2 - PCV) 2001 HPV VACCINE (1 - 3-dose SCDM series) 2009 COVID-19 VACCINE (1 - 2023-2 5 season) 2024 DEPRESSION SCREENING 09/02/2024 INFLUENZA VACCINE (#1) 2025 ZOSTER VACCINE (1 of 2) 2032 HIB [...]
--- OUTSIDE RECORDS SUMMARY | 2025-04-23 13:27 | XMS_ITS | Clinical Summary ---
Author Organization [facility] Address [address] [place] [address] Phone Care Team Providers Care Benefits Specialist Name Role Phone Provider, None Primary Care [...] of 3 - 19+ 3-dose series) 2001 Pap Smear 12/15/2003 Human Papillomavirus (HPV) Immunization (1 - 3-dose SCDM series) 2009 Cervical Cancer Screening (CCS) 2012 HPV/Cotest 2012 SARS-COV-2 Immunization ( season) 2024 Influenza Immunization (#1) 2025 Respiratory Syncytial Virus (RSV) Immunization (Adult) (1 - 1-dose 75+ series) 2057 Discussion re Starting/Frequ ency of Mammograms Discontinued 01/18/2017 Meningococcal Immunization (ACWY) Aged Out No longer eligible based on patient's age to complete this topic Pneumococcal Immunization Combined Aged Out No longer eligible based on [...] be contacted. Marvin Edward M.D. bs/:01/18/2017 10:54:34 Fiberglass Boat Assembly Supervisor: Francie Fish(Nabil), [facility] letter sent: Additional Imaging Reading location: [facility] BI-RADS: 0 Additional Imaging Evaluation Needed Procedure Note Marvin Edward MD - 01/18/2017 - CYN DIAG BILATERAL DIGITAL W CAD [...] be contacted. Marvin Edward M.D. bs/:01/18/2017 10:54:34 Fiberglass Boat Assembly Supervisor: Francie Fish(Nabil), [facility] letter sent: Additional Imaging Reading location: [facility] BI-RADS: 0 Additional Imaging Evaluation Needed us Dalia Bentley MD IMG MAMMO ORDERABLES F inal Result from Last 3 Months or Most Recently Relevant to Health Maintenance Care Teams Benefits Specialist Relationship Specialty Start Date End Date Provider, None [place] PCP - General 10/06/15
--- OUTSIDE RECORDS SUMMARY | 2025-04-23 13:27 | XMS_ITS | Clinical Summary ---
Author Organization [facility] Address [address] [place] [address] Care Team Providers Care Mortuary Technician Name Role Phone Jadon Triplett MD Primary Care Provider [phone] [phone] Allergies Active Allergy Reactions Criticality Noted Date Comments Miconazole Rash,Swelling Low 09/20/2011 REDNESS SWELLING Oxycodone-Acetaminophe n Vomiting,Nausea and Vomiting 09/20/2011 Medications FLUoxetine 20 MG capsule Take 20 mg by mouth daily. 07/11/2021 Active omeprazole 40 MG capsule Take 40 mg by mouth 2 (two) times a day. 10/20/2021 Active vitamin D2, ergocalciferol, 22052 UNITS capsule TAKE 1 CAPSULE BY MOUTH [...] 1:16 PM CDT Height 180.3 cm (5' 11) 11/30/2021 1:16 PM CDT Body Mass Index 29.43 11/30/2021 1:16 PM CDT Plan of Treatment Health Maintenance Due Date Last Done Comments Cervical Cancer Screening Pa p Smear (Age 30 to 64) Every 3 Years 1982 Annual Physical 1985 Hepatitis C 2000 Hepatitis B Vaccines (1 of 3 - 19+ 3-dose series) 2001 HPV Vaccines (1 - 3-dose SCD M series) 2009 Cervical Cancer Screening Pa p with HPV Testing (Age 30 to 64) Every 5 Years 2012 Cervical Cancer Screening wi th HPV 2012 Mammogram Screening 2022 COVID-19 Vaccine ( - 2023-2 5 season) 2024 06/16/2021, 09/13/2020, 08/23/2020 DTaP, Tdap and Td Vaccines ( 2 - Td or Tdap) 12/22/2028 12/22/2018 Meningococcal B Vaccine Aged Out No l onger eligible based on patient's age to complete this topic Meningococcal Vaccine Aged Out No alejandro david eligible based on patient's age to complete this topic Pneumococcal Vaccine: Pediatrics (0 to 5 Years) and At-Risk Patients (6 to 49 Years) Aged Out No longer eligible b ased on patient's age to complete this topic RSV Immunizations Under 20 Months Aged Out No longer eligible b ased on patient's age to complete this topic [place] [address] [place] [address] Care Teams Mortuary Technician Relationship Specialty Start Date End Date Jadon Triplett MD [address] [place] [address] [place] [address] PCP - General FAMILY PRACTICE 07/18/21
[2025-04-23 14:36] LABS: Free T4 Free Thyroxine 1.10 ng/dL (0.78-2.19)
[2025-04-23 14:51] LABS: Thyroid Stimulating Hormone 3.390 uIU/mL (0.465-4.680)
== END 2025-04-23 13:24 | disposition home or self-care (01) ==
LOC: ANHLAB 13:25
PROVIDERS: PCP Family Medicine; Visit Provider Internal Medicine
DX: E06.3 Autoimmune thyroiditis (principal); E04.1 Nontoxic single thyroid nodule
CPT/HCPCS: 36415; 84439; 84443

== ENCOUNTER 2025-05-12 08:04 | Outpatient (CLI) | payer OTHER, SELFPAY ==
--- OUTSIDE RECORDS SUMMARY | 2017-05-01 08:45 | XMS_ITS | Continuity of Care Document ---
Author Organization [facility] Address [address] [place] [address] Phone Care Team Providers Care Ironer Machine Name Role Phone Marquise Lorenzana MD Unavailable Unavailable Allergies, Adverse Reactions, Alerts Substance Reaction Status Criticality No Known Allergies Active No Inform ation Medications Medication Instructions Dosage Effective Dates (start - stop) Status Comments PROZAC (unknown strength) Not Available - Active Procedures Procedure Date OFFICE/OUTPATIENT VISIT EST OFFICE/OUTPATIENT VISIT EST POSTOP FOLLOW-UP VISIT POSTOP FOLLOW-UP VISIT POSTOP FOLLOW-UP VISIT OFFICE/OUTPATIENT VISIT NEW Advance Directives Directive Yes / No Effective Date File Name No Information Encounters Encounter Description Practice Location Reason(s) For Visit Diagnoses Date Provider Providers Copied on Encounter OFFICE/OUTPA TIENT VISIT EST [facility], [address] [place] [address], [id number], tel:[phone] [facility] Sprain of right wrist, subsequent encounter 7 Harriett Camarillo. [address] [place], [place], [id number] . tel: [phone] OFFICE/OUTPA TIENT VISIT EST [facility], [address] [place] [address], [address], tel:[phone] [facility] Other specified postprocedural states 7 Zia Tate. [address] [place] [address] [address], [place], [place], [id number] , [place]. tel: [phone] [facility], [address] [place] [address], [address], [place] tel:[phone] [facility] s/p right wrist (chief complaint) Status post wrist surgery 7 Zia Tate. [address], [place], [place], [id number] , [place]. 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 [address] [place], [place], [id number] . 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 [address] [place], [place], [id number] . 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 [address] [place], [place], [id number] . 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 [address] [place], [place], [id number] . tel: [phone] Referring Provider: Chuy Senior, [address] [place] [address], [address] . tel:[phone] Family History Family Member Type Diagnosis Age At Onset Brother Problem (finding) Alive and well Payers Payer name Insurance type Covered republican ID Authoriza tisoco(s) [employer] Choice PPO OT [id number] Psychological Operations Officer Benefit Plans - New E2 OT [id number] Social History Type Description Quantity Date Captured Comments Alcohol Use Details Unknown Caffeine Use Details Unknown Tobacco Use Status Smoking Status No Information Sex Female Chief Complaint And Reason For Visit No Information Reason For Referral Reason For Referral No Information Plan Of Treatment Date Type Action Status Referral Ordered: RADEX WRST COMPL MINIMUM 3 VIEWS RT ordered History Of Present Illness Encounter Date Complaint History Of Prese nt Illness s/p right wrist Functional Status Date Functional Assessmen t No Information Instructions Date Instruction Additional Infor mation Apply ice as instructed. 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
--- OUTSIDE RECORDS SUMMARY | 2025-05-12 08:24 | XMS_ITS | Clinical Summary ---
Author Organization [facility] Address [address] [place] [address] Care Team Providers Care Cargo Bracer Name Role Phone Jadon Triplett MD Primary Care Provider [phone] Allergies Active Allergy Reactions Criticality Noted Date Comments Miconazole Rash,Swelling Low 09/20/2011 REDNESS SWELLING Oxycodone-Acetaminophe n Vomiting,Nausea and Vomiting 09/20/2011 Medications FLUoxetine 20 MG capsule Take 20 mg by mouth daily. 07/11/2021 Active omeprazole 40 MG capsule Take 40 mg by mouth 2 (two) times a day. 10/20/2021 Active vitamin D2, ergocalciferol, 61131 UNITS capsule TAKE 1 CAPSULE BY MOUTH [...] Mammogram Screening 2022 COVID-19 Vaccine ( - 2024-2 6 season) 2025 06/16/2021, 09/13/2020, 08/23/2020 DTaP, Tdap and Td [...] patient's age to complete this topic [place] [address] [place] [address] Care Teams Cargo Bracer Relationship Specialty Start Date End Date Jadon Triplett MD [address] [place] [address] [place] [address] PCP - General FAMILY PRACTICE 07/18/21
--- OUTSIDE RECORDS SUMMARY | 2025-05-12 08:24 | XMS_ITS | Clinical Summary ---
Author Organization [facility] Address [address] [place] [address] Care Team Providers Care Battery Test Engineer Name Role Phone Unavailable Primary Care Provider Unavailabl e Source Comments [facility],non-owned Affiliates and Associated Physician Practices is amultiple site organization consisting of ambulatory clinics and hospital sitesin [place], [place], [place] and [place]. This disclosure is being madepursuant to the Care Everywhere program and may not contain all information available regarding this patient. 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 Not on file Not on file Last Filed Vital Signs Vital Sign Reading Time Taken Comments Blood Pressure 111/77 09/28/2011 3:24 PM NECKTIE TURNER Pulse 76 09/28/2011 2:52 PM NECKTIE TURNER Temperature 36.3 C (97.4 F) 09/28/2011 2:52 PM NECKTIE TURNER Respiratory Rate 26 09/28/2011 2:52 PM NECKTIE TURNER Oxygen Saturation 95% 09/28/2011 2:52 PM NECKTIE TURNER Inhaled Oxygen Concentration - - Weight - - Height 170.2 cm (5' 7) 09/28/2011 11:13 AM NECKTIE TURNER Body Mass Index - - Plan of Treatment Health Maintenance Due Date Last Done Comments LIPID TESTING 1982 MAMMOGRAM 1982 HIV SCREENING 1997 HEPATITIS C SCREENING 12/09/2000 DTAP/TDAP/TD VACCINES (1 - Tdap) 2001 HEPATITIS B VACCINE (1 of 3 - 19+ 3-dose series) 2001 PNEUMOCOCCAL VACCINE (1 of 2 - PCV) 2001 HPV VACCINE (1 - 3-dose SCDM series) 2009 DEPRESSION SCREENING 09/02/2024 COVID-19 VACCINE (1 - 2023-2 5 season) 2025 INFLUENZA VACCINE (#1) 2025 ZOSTER VACCINE (1 [...]
--- OUTSIDE RECORDS SUMMARY | 2025-05-12 08:24 | XMS_ITS | Clinical Summary ---
Author Organization [facility] Address [address] [place] [address] Phone Care Team Providers Care Supervisory Examiner Name Role Phone Provider, None Primary Care [...] Cervical Cancer Screening (CCS) 2012 HPV/Cotest 2012 Influenza Immunization (#1) 2025 SARS-COV-2 Immunization ( season) 2025 Respiratory Syncytial Virus (RSV) Immunization (Adult) [...] be contacted. Marvin Edward M.D. bs/:01/18/2017 10:54:34 Courier: Francie Fish(Nabil), [facility] letter sent: Additional Imaging Reading location: [facility] BI-RADS: 0 Additional Imaging Evaluation Needed Procedure [...] be contacted. Marvin Edward M.D. bs/:01/18/2017 10:54:34 Courier: Francie Fish(Nabil), [facility] letter sent: Additional Imaging Reading location: [facility] BI-RADS: 0 Additional Imaging Evaluation Needed us Dalia Bentley MD IMG MAMMO ORDERABLES F inal Result from Last 3 Months or Most Recently Relevant to Health Maintenance Care Teams Supervisory Examiner Relationship Specialty Start Date End Date Provider, None [place] PCP - General 10/06/15
--- OUTSIDE RECORDS SUMMARY | 2025-05-12 08:24 | XMS_ITS | Clinical Summary ---
Author Organization [facility] Address [address] [place] [id number] Phone Care Team Providers Care Property Man Name Role Phone Unavailable Primary Care Provider [...] 19+ 3-dose series) 12/01 HPV/Cotest (21-29) 12/15/2003 HPV VACCINES (1 - 3-dose SCDM series) 2009 CERVICAL CANCER SCREENING 2012 HPV/Cotest (30-65) 2012 PAP SMEAR 2012 BREAST CANCER SCREENING 2022 INFLUENZA VACCINE (#1) 2025 Medical Devices Implanted Type Area Amusement Park Ride Mechanic Device Identifier Shelf Expiration Date Model / Serial / Lot Accell [id number] Dbm Putty 2.5ml [id number] - [id number] Implanted:Qty : 1 on 07/03/2016 by Marquise Lorenzana MD at [facility] Putty Right: Hand [employer] 03/29/20175000-0 25 / [id number] / [id number] Description:[id number] Screw Mini Acutrak 26mm At2-M26-S - [id number] Implanted:Qty : 1 on 07/03/2016 by Marquise Lorenzana MD at [facility] Screw Right: Hand [employer] 04/01/2020 AT2-M26-S / / [id number] Screw Mini Acutrak 24mm At2-M24-S - [id number] Implanted:Qty : 1 on 07/03/2016 by Marquise Lorenzana MD at [facility] Screw Right: Hand [employer] [id number] 04/28/2022 AT2-M24-S / / [id number] Explanted Type Area Amusement Park Ride Mechanic Device Identifier Shelf Expiration Date Model / Serial / Lot Wire K Trocar Dbl .[id number] - [id number] Implanted:Marquise Soares MD (Quantity not on file) Explanted:Qty: 1 on 07/03/2016 by Marquise Lorenzana MD at [facility] Wire Right: Hand [employer] [id number] / / [id number] 35 STERILIZED 06-30-2016 Screw Explanted:Qty: 1 on 07/03/2016 by Marquise Lorenzana MD at [facility] Right: Hand NA / / NA Advance Directives For more information, please contact: [phone] * Full Code (Latest Code Status on File) Date Activated Date Inactivated Comments 07/03/2016 7:54 AM 07/03/2016 2:43 PM * Full Code Date Activated Date Inactivated Comments 07/03/2016 6:49 AM 07/03/2016 7:54 AM
--- NOTE | 2025-05-20 15:14 | WPDSLEEPSTUD ---
Sleep Study Date of Study: 05/12/25 Ordering Provider: BRISA Castro Interpreting Physician: Guillermina Lockett MD Sleep Study Type: Polysomnogram Height: 1.8 m Weight: 81.647 kg Body Mass Index: 25.1 Neck Circumference (inches): 15 [place]: 8 Reason for Sleep Study * 12/11/2023; Home sleep test showing AHI 3.9, desaturation to 82%. She did not meet criteria for treatment. She returns for a split night study with persistent symptoms. Sleep History Val Layne is a 44-year-old female with a history of frequent loud snoring and witnessed apneas who returns for an in-lab polysomnogram following a home sleep test which was negative for TASHA, see above. Her sleep questionnaire form 12/11/23 HST was used to complete this sleep history. Her sleep issues were first noted by her glaze wiper treating Kiet thyroiditis, currently not on medications with normal lab testing. Her smart watch indicated oxygen desaturations to 88% over the prior month before her home sleep test. She does not awaken at night feeling short of breath. She rarely has heartburn, belching or coughing which wakes her at night. She occasionally has difficulty sleeping when she has a cold. She does not gasp for breath during the night. Others have witnessed her having episodes of apnea. She rarely sweats excessively at night. She does not notice having palpitations or irregular heartbeats at night. She rarely falls asleep during the day, never while driving. She does not feel paralyzed on falling asleep or upon awakening, she does not have muscle weakness with strong emotion, and she does not have daytime difficulties due to excessive sleepiness. 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 she occasionally experiences vivid dreamlike scenes when she is falling asleep or waking. She does not feel afraid to go to sleep. She does not have nightmares. She occasionally remembers her dreams. She she occasionally has racing thoughts. She does not feel sad or depressed. She occasionally has anxiety. She has constant muscle tension, frequently notices parts for jerking and frequently kicks during the night. She constantly has crawling and aching feelings in her legs and leg pain during the night. She constantly grinds her teeth during sleep, always wakes up with morning jaw pain. She constantly is bothered by pain during the day and is awakened by pain during the night. She constantly wakes up feeling stiff in the morning with sore achy muscles and pain in the neck and spine. She has morning headaches once or twice per week. She is tired during the day. Her tells her that he she kicks often and moves around frequently during sleep. For this reason, she sleeps with a weight to blanket over her legs. She has used magnesium spray at bedtime with improvement in symptoms. She talks in her sleep and at times wakes herself up due to sleep talking. Normal bedtime is between 9:00 - 9:30 p.m., falling asleep within 30 minutes, waking once at night to urinate. She may awaken additional times but not to urinate. These are awakenings for unknown reasons. Most nights, she is able to return to sleep easily after waking. Her wake time is 5:45 a.m. during the week. On weekends, bedtime is 10:00 p.m. and wake time is 7:00 a.m.. She reports getting between 7 and 8 hours of sleep at night. she does not take naps in the afternoon or evening. * Habits: Tobacco: Former smoker, 1/2 pack per day for 20 years, quit 2020 Caffeine : One cup of coffee daily Alcohol : 1 glass of wine per week Recreational substances : none PMFSH Past Medical History Medical History (Updated 05/20/25 @ 18:51 by Guillermina Lockett MD) Depression Snoring Kiet's thyroiditis Surgical History Surgical History No pertinent past surgical history Family History Family History Father Diabetes mellitus Mother Family history of malignant neoplasm of kidney Grandparent Carcinoma of colon Social History Social History (Updated 05/20/25 @ 18:08 by Guillermina Lockett MD) Smoking packs per day: 0.5 Smoking cigarettes per day: 10.0 Years smoked: 20 Smoking pack-years: 10.00 Smoking status: Former smoker Alcohol intake: current Alcohol use details: wine 1 serving per week Substance use: never Do You Feel Safe in your Home?: Yes Lack of Transportation: No Lack of Food: Never True Current Housing: I Have Housing Concerned About Future Housing: No Difficulty Paying Gas/Electric Bills: No Difficulty Paying for Meds: No Currently Unemployed: No Education: Associate Degree Difficulty w/ Childcare or Family Care: No Living arrangements: with family Additional occupation/education comments: RN Gender identity (if verbalized by the patient): Female Sexual Orientation (if Verbalized by the Patient): Straight or Heterosexual Medications Home Medications ?Medication ?Instructions ?Recorded ?Confirmed ?Type ergocalciferol (vitamin D2) 1,250 1 unit PO WEEKLY 09/17/22 02/12/25 History mcg (50,000 unit) capsule fluoxetine 20 mg capsule 20 mg PO DAILY 09/17/22 02/12/25 History Ozempic 03/20/24 02/12/25 History eszopiclone 2 mg tablet (Lunesta) 2 mg PO ONCE #1 tablet 02/12/25 02/12/25 Rx Sleep Procedure A full night polysomnogram using the Workstir multi-channel system recorded the standard physiologic parameters including EEG, EOG, submentalis EMG, anterior tibialis EMG, EKG, body position, nasal and oral airflow using nasal pressure sensor and thermistor. Respiratory parameters of chest and abdominal movements were recorded with Respiratory Inductance Plethysmography belts. Oxygen saturation was recorded by pulse oximetry. Video monitoring was also performed. Sleep stages, periodic limb movements, and EEG arousals were scored in 30 second epochs according to the criteria of the AASM Scoring Manual. The Apnea-Hypopnea Index was calculated using CMS guidelines for definition of hypopnea with 4% O2 desaturations while scoring respiratory events. She self-administered Lunesta 2 mg at the start of the study. She did not meet criteria early enough in the night to initiate CPAP so this was conducted as a full night basic polysomnogram. Sleep Architecture The total recording time was 435.8 minutes. The total sleep time was 388.5 minutes. Sleep latency was 15.4 minutes. REM latency was 120.0 minutes. Sleep efficiency was 89.1%. The patient had 36 awakenings for an awakening index of 5.6. Wake after sleep onset time was 31.5 minutes. The patient spent 24.5 minutes, 6.3% of total sleep time in Stage N1. The patient spent 191.0 minutes, 49.2% in Stage N2. The patient spent 51.0 minutes, 13.1% in Stage N3. The patient spent 122.0 minutes, 31.4% in Stage REM sleep. Respiratory Analysis The patient had 19 hypopneas, 9 obstructive apneas, 3 mixed apneas, and 11 central apneas for an overall Apnea Hypopnea Index of 6.5 using 4% criteria, consistent with mild obstructive sleep apnea. The apnea hypopnea index using 3% criteria is 9.7. The REM Apnea Hypopnea Index was 4.9. The NREM Apnea Hypopnea Index was 7.9. The patient had a Central Apnea Hypopnea Index of 1.7. The supine apnea-hypopnea index was 28.5. The nonsupine apnea-hypopnea index was 3.5. There were no Respiratory Effort Related Arousals. The Respiratory Disturbance Index is 9.6 events per hour. There was no evidence of Jim-Haines Respirations. Arousals There were 122 total arousals for an arousal index of 18.8. There were 45 spontaneous arousals for an index of 6.9. There were 29 arousals due to respiratory events for an index of 4.5. There were 11 arousals due to periodic limb movements for an index of 1.7. There were 28 arousals due to isolated limb movements for an index of 4.3. Periodic Limb Movements The patient had 51 isolated limb movements with an index of 7.9. The patient had 17 periodic limb movements with an index of 2.6. Patient had a total of 68 limb movements with a total limb movement index of 10.5. Oximetry Data The patient had an average oxygen saturation of 94.7% in sleep with a minimum oxygen saturation of 82% and a maximum oxygen saturation of 98%. The patient had 37 oxygen desaturations that were 4% or greater resulting in an Oxygen Desaturation Index of 5.7. The patient spent 5.3 minutes, 1.2% of total sleep time with an oxygen saturation below 88%. Snoring Profile Snoring was mild to moderate. Cardiac Profile The EKG showed normal sinus rhythm, average pulse rate of 69 bpm with a minimum pulse of rate of 54 bpm and a maximum pulse rate of 92 bpm. No arrhythmias noted. EEG Profile Unremarkable, no evidence of seizures. Assessment and Plan Assessment and Plan (1) Obstructive sleep apnea: Code(s): G47.33 - Obstructive sleep apnea (adult) (pediatric) Status: Acute Assessment and Plan: This basic nocturnal polysomnogram on 05/12/2025 shows mild obstructive sleep apnea with an apnea-hypopnea index of 6.5, desaturation to 82% and 5.3 minutes, 1.2% of the night spent below 88%. She has positional apnea, the supine AHI is 45.8, 4 times greater than the overall AHI at 9.7. She has a history of depression, takes fluoxetine. With this medical comorbidity, she is a candidate for PAP therapy. , I recommend that this patient be prescribed Resmed AirSense 11 AutoPAP 5-15 cm H2O, CPAP mask/filters/tubing and humidifier chamber. This should be used with all episodes of sleep. Compliance should be reviewed within 31-90 days of starting therapy for usage greater than 4 hours per night greater than 70% of the nights. The patient should be asked about symptoms such as excessive daytime sleepiness, quality of sleep, decreased nocturia, increased mental functioning such as memory, mood, and concentration. (2) Restless legs: Code(s): G25.81 - Restless legs syndrome Status: Acute Assessment and Plan: She has restless leg syndrome by history. Her sleep questionnaire from her 12/11/2023 study indicates constant uncomfortable feelings in her legs before sleep and kicking at night. Her ferritin level on 12/11/2023 was 27.9. Ferritin should be 75 ng/mL or greater in this situation to eliminate iron deficiency anemia as a contributing cause to her leg symptoms. Iron supplementation should be given to achieve ferritin of 75 ng/mL. There are nonpharmacologic methods to treat limb movements including daily exercise, stretching calf muscles before bed, avoiding excessive amounts of caffeine and alcohol, vitamin B supplementation, magnesium lotion massaged into legs before bed, and use of a weighted blanket which she is already using. Follow up ferritin level after she has been on iron for 3-4 months if she is still having symptoms. (3) Bruxism, sleep-related: Code(s): G47.63 - Sleep related bruxism Status: Acute Assessment and Plan: She gives a history of grinding her teeth at night and waking with morning jaw pain. i did not see conclusive evidence of this on her polysomnogram, however she should consult with her dentist about wear and tear on her enamel. Grinding teeth can accompany obstructive sleep apnea. This problem may improve once she starts using PAP therapy. Some patients use PAP therapy and a mouth guard to prevent tooth damage. If her jaw pain improves after regular use of PAP, she may still need to hav additional management from hr dentist. . Data The data obtained during this sleep study is adequate for interpretation. Certification This sleep study has been reviewed by a board certified sleep medicine physician.
[2025-05-20 18:42] VITALS: BMI 25.1
== END 2025-05-13 06:59 | disposition home or self-care (01) ==
LOC: ANHCSM 08:05
PROVIDERS: PCP Family Medicine; Visit Provider Physician Assistant
DX: G47.10 Hypersomnia, unspecified (principal); G47.33 Obstructive sleep apnea (adult) (pediatric); G25.81 Restless legs syndrome; G47.63 Sleep related bruxism
CPT/HCPCS: 95810

== ENCOUNTER 2025-08-09 07:51 | Outpatient (CLI) | payer OTHER, SELFPAY ==
--- NOTE | ~2025-08-09 | MM_ITS ---
EXAMINATION: MM screening [facility] BI w [place] HISTORY: Screening. TECHNIQUE: Craniocaudal and mediolateral oblique 3-D tomosynthesis images were obtained and synthetic 2-D images were generated. CAD analysis was submitted and interpreted. COMPARISON: 2016. BREAST PARENCHYMAL COMPOSITION: Dense: The breasts are extremely dense FINDINGS: No suspicious masses are seen. There are some faint punctate calcifications in the posterior upper outer quadrant on the right. No unexplained architectural distortion is seen. There are no skin or nipple abnormalities identified. There is no adenopathy seen on the images submitted. IMPRESSION: Calcifications on the right for which additional mammographic imaging is recommended. BI-RADS 0 - Incomplete - needs additional imaging evaluation and/or prior mammograms for comparison. Reviewed, dictated and finalized at location B. [employer] [employer] IMPRESSION: Calcifications on the right for which additional mammographic imaging is recomm ended. BI-RADS 0 - Incomplete - needs additional imaging evaluation and/or prior mammo grams for comparison.
== END 2025-08-09 07:52 | disposition home or self-care (01) ==
LOC: CHSIMG 07:52
PROVIDERS: PCP Family Medicine; Visit Provider Obstetrics & Gynecology
DX: Z12.31 Encounter for screening mammogram for malignant neoplasm of breast (principal); R92.8 Other abnormal and inconclusive findings on diagnostic imaging of breast
CPT/HCPCS: 77063; 77067